=== PATIENT | female | born 1960 | race Caucasian/White ===

== ENCOUNTER 2018-05-07 09:45 | Emergency (ER) | payer BC ==
[2018-05-07 10:39] VITALS: BP 150/66
--- NOTE | 2018-05-07 11:25 | UC ---
Skin Complaint HPI - HPI Summary HPI Summary: Patient presents to urgent care reporting itchy progressive rash on her whole body for the last 4-5 days. Patient states she has taken cool showers and seemed to help with temporary. No facial swelling or difficulty swallowing. Patient with a history of sarcoid and states she is on immunosuppressants for this. Patient states this has not progressed and she has no changes from her baseline is between status. Patient denies any new products, environments, or contacts. Patient does state she was been outside working quite a bit but in the same environment she's been also some or. No be at home with any similar lesions. Patient unable to take Benadryl causing itching. Patient does take Singulair and another allergy medicine daily. Patient without fevers. No nausea vomiting. No change in appetite. No diarrhea. No dysuria. Patient is most concerned because her grandchildren are coming to visit for a week starting tomorrow. Patient's concerned she might have something contagious. Patient has not put anything topical on the wounds. Patient without anything similar. Medications medications reviewed this visit - History of Current Complaint Chief Complaint: UCSkin Time Seen by Provider: 05/07/18 10:48 Stated Complaint: SKIN CONCERN/FACIAL Hx Obtained From: Patient ?: No Onset/Duration: Gradual Onset Onset Severity: Mild Current Severity: None Pain Intensity: 0 Pain Scale Used: 0-10 Numeric Character: Pruritus Aggravating Factor(s): Humidity - Allergy/Home Medications Allergies/Adverse Reactions: Allergies Allergy/AdvReac Type Severity Reaction Status Date / Time amoxicillin Allergy Anaphylatic Verified 05/07/18 10:25 Shock codeine Allergy Hives Verified 05/07/18 10:25 diphenhydramine Allergy Anaphylatic Verified 05/07/18 10:25 [From Benadryl] Shock hydrocodone Allergy Hives Verified 05/07/18 10:25 leflunomide Allergy Diarrhea Verified 05/07/18 11:09 morphine Allergy Headache Verified 05/07/18 10:25 Sulfa (Sulfonamide Allergy Difficulty Verified 05/07/18 10:25 Antibiotics) Breathing BEES Allergy Anaphylatic Uncoded 05/07/18 10:25 Shock NUTS Allergy Difficulty Uncoded 05/07/18 10:25 Breathing Home Medications: Home Medications prednisoLONE 1% OPHTH.SUSP* [Pred Forte 1%*] 1 drop .SEE ORDER BID PRN 05/07/18 [History Confirmed 05/07/18] raNITIdine HCl [Ranitidine HCl] 150 mg PO BEDTIME 05/07/18 [History Confirmed ] tiZANidine TAB* [Zanaflex TAB*] 2 mg PO TID PRN 05/07/18 [History Confirmed 06/16] Review of Systems Constitutional: Negative Skin: Rash All Other Systems Reviewed And Are Negative: Yes PMH/Surg Hx/FS Hx/Imm Hx Previously Healthy: Yes - sarcoidosis Cardiovascular History: Hypertension - Surgical History Surgical History: Yes Surgery Procedure, Year, and Place: [place] RIGHT EAR. appy. hysterectomy. ovaries removed x2. carpal tunnel. b/l cataract. polyp removed from throat. right rotator cuff sx--2016bilateral. neck surgery- disc removed. - Family History Known Family History: Positive: Hypertension - Social History Lives: With Family Alcohol Use: None Substance Use Type: None Smoking Status (MU): Never Smoked Tobacco Physical Exam - Summary Physical Exam Summary: Vital Signs Reviewed: Yes A+Ox3, no distress Eyes: Conjunctiva Clear, YONNY. EOM intact and full ENT: Hearing grossly normal TM x 2 clear, mmoist, uvula midline, no exudate, no erythema Neck: Positive: Supple Respiratory: Positive: No respiratory distress, No accessory muscle use + CTA throughout no w/r Cardiovascular: RRR nl s1, s2 no m/r CBT <2 sec abd soft + BS nt/nd no guarding, no distension Musculoskeletal Exam: RAND x 4 without difficulty Strength Intact, ROM Intact Neurological: Positive: Alert, + sensation throughout Psychological: Positive: Normal Response To Family Skin: Positive: Pt with 2 different appearing skin lesions types. Pt with red, confuluent, flat slightly moist appearing rash c/w yeast under breasts b/l, going, and in skin fold on left flank. Pt also with small, urticaria lesions on upper chest, abdomen, forearms, posterior neck, scalp - hive likelesions on erythematous base . no vesicles Triage Information Reviewed: Yes Vital Signs: Initial Vital Signs Temp 97.5 F 05/07/18 10:32 Pulse 71 05/07/18 10:32 Resp 16 05/07/18 10:32 BP 150/66 05/07/18 10:32 Pulse Ox 99 08/09/18 10:32 Course/Dx - Course Course Of Treatment: Patient presents with rash progressive for 5 days. Patient with appearance of Ayah-type of rash under her breasts morning and skinfolds. Patient also with a separate distantly different appearing urticarial hives on torso abdomen back arms neck area patient. Pt's BP mild elevated -current diagnosis and treatment. Concern for infectious processes low. Patient however is immunocompromised. Patient very concerned because her grandchildren are coming. I contacted Dr. Murillo's office - he is able to see the patient today at 130 this [place] office. Patient very happy with this plan. We'll refrain him scribing anything pending that evaluation. Patient given the address. Patient advised to present at 124 paperwork. Patient agreement with plan. Patient advised if any changes to difficulty breathing or intraoral edema should go to emergency department or call 911 immediately Patient states understanding and agreement. - Diagnoses Provider Diagnoses: acute rash Discharge - Sign-Out/Discharge Documenting (check all that apply): Patient Departure - Discharge Plan Condition: Stable Disposition: HOME Patient Education Materials: Acute Rash (ED) Referrals: Abel Murillo MD [Medical Doctor] - (6 [facility] [address] - 1:30pm today, 05/07/2018) No Primary Care Phys,NOPCP [Primary Care Provider] - Additional Instructions: The doctor that evaluated you today thinks some of your rash (under your breast , groin) is related to yeast. The other areas appear as hives. Because of your other medical conditions, it is recommended you seek care from a nursing assistants teacher You have an appointment today at 130pm (please arrive at 1:20pm to complete paperwork) with Dr. Murillo - [address] [place] [address] [address] - he is expecting you Avoid getting over heated if you develop difficulty breathing or throat swallowing - call 911 and go the hospital - Billing Disposition and Condition Condition: STABLE Disposition: Home
== END 2018-05-07 11:15 | disposition home or self-care (01) ==
LOC: UCCORT 09:45
DX: R21 Rash and other nonspecific skin eruption (principal); Z88.0 Allergy status to penicillin; E88.2 Lipomatosis, not elsewhere classified; Z88.5 Allergy status to narcotic agent; Z88.8 Allergy status to other drugs, medicaments and biological substances; I10 Essential (primary) hypertension
CPT/HCPCS: 99212; G0463

== ENCOUNTER 2019-01-08 21:30 | Emergency (ER) | payer BC ==
[2019-01-08 21:48] VITALS: BP 145/75
--- NOTE | 2019-01-08 22:00 | UC ---
UC General HPI - HPI Summary HPI Summary: pt c/o R ear pain, sore throat, headache and joint aches x 3 days. - History of Current Complaint Chief Complaint: UCGeneralIllness Stated Complaint: EAR CONCERN,SORE THROAT Time Seen by Provider: 01/08/19 21:51 Hx Obtained From: Patient Timing: Constant Pain Intensity: 6 Associated Signs & Symptoms: Negative: Chest Pain, SOB - Allergy/Home Medications Allergies/Adverse Reactions: Allergies Allergy/AdvReac Type Severity Reaction Status Date / Time amoxicillin Allergy Anaphylatic Verified 01/08/19 21:42 Shock codeine Allergy Hives Verified 01/08/19 21:42 diphenhydramine Allergy Anaphylatic Verified 01/08/19 21:42 [From Benadryl] Shock hydrocodone Allergy Hives Verified 01/08/19 21:42 leflunomide Allergy Diarrhea Verified 01/08/19 21:42 morphine Allergy Headache Verified 01/08/19 21:42 Sulfa (Sulfonamide Allergy Difficulty Verified 01/08/19 21:42 Antibiotics) Breathing BEES Allergy Anaphylatic Uncoded 01/08/19 21:42 Shock NUTS Allergy Difficulty Uncoded 01/08/19 21:42 Breathing PMH/Surg Hx/FS Hx/Imm Hx - Additional Past Medical History Additional PMH: sarcoidosis Endocrine History: Dyslipidemia Cardiovascular History: Hypertension Respiratory History: Asthma - Surgical History Surgical History: Yes Surgery Procedure, Year, and Place: [place] RIGHT EAR. appy. hysterectomy. ovaries removed x2. carpal tunnel. b/l cataract. polyp removed from throat. right rotator cuff sx--2016bilateral. neck surgery- disc removed. - Family History Known Family History: Positive: Hypertension - Social History Lives: With Family Alcohol Use: None Substance Use Type: None Smoking Status (MU): Never Smoked Tobacco Review of Systems All Other Systems Reviewed And Are Negative: Yes ENT: Positive: Sore Throat, Ear Ache Musculoskeletal: Positive: Arthralgia Neurological: Positive: Headache Is Patient Immunocompromised?: Yes Physical Exam Triage Information Reviewed: Yes Appearance: Ill-Appearing - but non toxic Vital Signs: Initial Vital Signs Temp 97.2 F 01/08/19 21:45 Pulse 64 01/08/19 21:45 Resp 18 01/08/19 21:45 BP 145/75 01/08/19 21:45 Pulse Ox 97 01/08/19 21:45 Eyes: Positive: Conjunctiva Clear ENT: Positive: Pharyngeal erythema, TMs normal, Other - Canals clear. No auricular adenopathy or mastoid tenderness.. Negative: Nasal congestion, Nasal drainage Neck: Positive: Supple, Nontender, No Lymphadenopathy Respiratory: Positive: Lungs clear, Normal breath sounds Cardiovascular: Positive: RRR, No Murmur Abdomen Description: Positive: Nontender Bowel Sounds: Positive: Present Musculoskeletal: Positive: ROM Intact Neurological: Positive: Alert Psychological: Positive: Normal Response To Family, Age Appropriate Behavior Skin Exam: Normal, Other - Face is flushed. Course/Dx - Course Course Of Treatment: DIAGNOSTICS: RAPID STREP= positive RAPID FLU=negative pt states she has taken Zithromax with no issues and request a Diflucan to tx yeast vaginitis from antibiotics. - Diagnoses Provider Diagnosis: Strep throat Discharge - Sign-Out/Discharge Documenting (check all that apply): Patient Departure All imaging exams completed and their final reports reviewed: No Studies - Discharge Plan Condition: Stable Disposition: HOME Prescriptions: Azithromycin 500 mg PO DAILY 5 Days #5 tablet Fluconazole 150 MG TAB* [Diflucan 150 MG TAB*] 150 mg PO ONCE #1 tablet Patient Education Materials: Strep Throat (ED) Referrals: RICHARD Schmitt [Medical Doctor] - 7 Days - Billing Disposition and Condition Condition: STABLE Disposition: Home
[2019-01-08] MEDS ORDERED: Azithromycin TAB* 250 MG PO ONE (22:17)
[2019-01-08 22:26] LABS: Influenza A Molecular NEGATIVE (Negative); Influenza B Molecular NEGATIVE (Negative)
== END 2019-01-08 22:34 | disposition home or self-care (01) ==
LOC: UCCORT 21:30
DX: J02.0 Streptococcal pharyngitis (principal); H92.01 Otalgia, right ear; E78.5 Hyperlipidemia, unspecified; I10 Essential (primary) hypertension; J45.909 Unspecified asthma, uncomplicated; Z88.0 Allergy status to penicillin; Z88.2 Allergy status to sulfonamides; Z91.030 Bee allergy status; Z88.5 Allergy status to narcotic agent; Z91.018 Allergy to other foods
CPT/HCPCS: 87651; 99212; A9270-GY; G0463

== ENCOUNTER 2019-05-05 15:50 | Emergency (ER) | payer BC ==
--- OUTSIDE RECORDS SUMMARY | 2019-05-05 17:14 | XMS REPORT | Continuity of Care Document ---
:1960 Author Organization [facility] Address [address], [place] [id number] Phone Care Team Providers Name Role Phone Kaya BILL, Mayte Unavailable Unavailable Allergies, Adverse Reactions, Alerts Substance Reaction Status balsam elian Active PROPOLIS (BEE GLUE) EXTRACT Active TAPENTADOL HCL Active morphine Active erythromycin base Active DIPHENHYDRAMINE HCL Active HYDROCODONE BITARTRATE Active acetaminophen Active codeine Active Sulfa (Sulfonamide Antibiotics) Active amoxicillin Active Medications Medication Instructions Dosage Effective Status Comments Dates (start - stop) hydroxychloroquine 200 take 2 tablet by 2 tablet - Active mg tablet oral route every day Remicade 100 mg infuse 900 900 milligram - Active intravenous solution milligram by intravenous route every 5 weeks prednisolone acetate 1 % instill 1 drop by - Active eye drops,suspension ophthalmic route every day into affected eye(s) cyclobenzaprine 10 mg take 1 tablet by 10 MG - Active tablet oral route every night as needed hydrochlorothiazide 25 take 1 tablet by 25 MG - Active mg tablet oral route every day lidocaine HCl 4 % - Active topical cream ibuprofen 800 mg tablet take 1 tablet by 800 MG - Active oral route 3 times every day as needed with food ranitidine 150 mg tablet take 1 tablet - Active (150MG) by oral route prn as needed Nexium 40 mg Cap take 1 capsule 40 MG - Active (40MG) by oral route every day pravastatin 40 mg Tab take 1 tablet 40 MG - Active (40MG) by oral route every day Singulair 10 mg Tab take 1 tablet 10 MG - Active (10MG) by oral route every day in the evening Clarinex 5 mg Tab take 1 tablet 5 MG - Active (5MG) by oral route every day Problems Condition Effective Dates Clinical Status Comments (start - stop) Body mass index (BMI) - 40.0-44.9, adult Sarcoidosis, unspecified Sarcoidosis, unspecified Other superintendent marine oil terminal (current) drug therapy Other dysphagia Sarcoidosis, unspecified Sarcoidosis, unspecified Sarcoidosis, unspecified Sarcoidosis, unspecified Other longterm (current) drug therapy Sarcoidosis, unspecified Sarcoidosis, unspecified Sarcoidosis, unspecified Other longterm (current) drug therapy Disorder of urinary system Sarcoidosis, unspecified Sarcoidosis, unspecified Sarcoidosis, unspecified Sarcoidosis, unspecified Other longterm (current) drug therapy Sarcoidosis Sarcoidosis Sarcoidosis Sarcoidosis Other superintendent marine oil terminal drug therapy Sarcoidosis Sarcoidosis Other longterm drug therapy Sarcoidosis Other longterm drug therapy Fatigue Sarcoidosis Sarcoidosis Other longterm drug therapy Sarcoidosis Sarcoidosis Sarcoidosis Headache Other longterm drug therapy Fatigue Diarrhea Sarcoidosis Sarcoidosis Other longterm drug therapy Fatigue Headache Diarrhea Chest pain Sarcoidosis Other longterm drug therapy Lumbago Cough Sarcoidosis Other superintendent marine oil terminal drug therapy Sarcoidosis Other superintendent marine [employer] terminal drug therapy Pain in right ankle and joints of right foot Pain in left ankle Sarcoidosis Sarcoidosis Other superintendent marine oil terminal drug therapy Oral thrush Rash Sarcoidosis Other superintendent marine oil terminal drug therapy Encounter for screening for respiratory tuberculosis Sarcoidosis Other superintendent marine oil terminal drug therapy Back pain Cervicalgia Sarcoidosis Other superintendent marine oil terminal drug therapy Sarcoidosis Other superintendent marine oil terminal drug therapy Cervicalgia Sarcoidosis Other longterm drug therapy Cervicalgia Sarcoidosis Other longterm drug therapy Pain in rt shoulder Lumbago Other superintendent marine oil terminal drug therapy Sarcoidosis Other superintendent marine oil terminal drug therapy Pain in rt shoulder Back pain Sarcoidosis Other longterm drug therapy Sarcoidosis Other longterm drug therapy Sarcoidosis Other superintendent marine oil terminal drug therapy Sarcoidosis Other superintendent marine oil terminal drug therapy Sarcoidosis Other longterm drug therapy Pain in rt shoulder Sarcoidosis Other superintendent marine oil terminal drug therapy Sarcoidosis Other superintendent marine oil terminal drug therapy Pain in rt shoulder Sarcoidosis - Active Mapped from [facility] Chronic Conditions table on 12/06/2014 by the ICD9 to SNOMED Bulk Mapping Utility. The mapped diagnosis code was Sarcoidosis, 135, added by Thelma Langford, with responsible provider Thelma MATTHEWS. Onset date 04/08/2012; last addressed on 08/30/2014. Joint pain in ankle and - Active Mapped from [facility] Chronic foot Conditions table on 12/06/2014 by the ICD9 to SNOMED Bulk Mapping Utility. The mapped diagnosis code was Pain in joint involving ankle and foot, 719.47, added by December [facility] EBEN Langford, with responsible provider [facility] CASSIE. Onset date 04/08/2012; last addressed on 05/24/2013. Procedures Procedure Date CHEMO, IV INFUSION, 1 HR CHEMO, IV INFUSION, ADDL HR Infliximab injection Remicade Normal saline solution infus Results Test Name Date and Time Measure Units Reference Range Abnormal Flag Status Comments No information Advance Directives Directive Yes / No Effective Date File Name No information Encounters Encounter Practice Location Reason(s) Diagnoses Date Provider Providers Description For Visit Copied on Encounter Arthritis Arthritis Sarcoidosis, [facility] unspecified 2-201 MD Hu. [facility] 9 5794 PLLC, 5794 PLLC [facility], [place], [place], [id number], [id number], [place]. [place] tel:[phone] tel:[phone] Arthritis Arthritis Sarcoidosis, [facility] unspecifiedOt 0-201 PA-C December. Provider: Sven Machuca her superintendent marine oil terminal 9 5794 Robbie Schultz PLLC, 5794 PLLC (current) Osorio BILL, 90 [facility] drug [place], [place], therapyOther [place], [place], [place], dysphagia [place], [place], [id number], [place], [address]. [id number], [place]. tel:[phone] [place] tel:[phone] tel:[phone] logist: [id number] Becky Wu, [address] [facility], [place], [address]. tel:[phone] ist: Brenda Cannon MD, [address], [place], [address]. tel:[phone] ing Provider: Rita Guillory MD, [address] [facility] [address], [place], [place], [id number]. tel:[phone] Arthritis Arthritis Sarcoidosis, [facility] unspecified MD Hu. [facility] 9 5794 PLLC, 5794 PLLC [facility], [place], [place], [place], [id number], [id number], [place]. [place] tel:[phone] tel:[phone] Arthritis Arthritis Sarcoidosis, [facility] unspecified MD Hu. [facility] 9 5794 PLLC, 5794 PLLC [facility], [place], [place], [place], [id number], [id number], [place]. [place] tel:[phone] tel:[phone] Arthritis Arthritis Sarcoidosis, [facility] unspecified MD Hu. [facility] 9 5794 PLLC, 5794 PLLC [facility], [place], [place], [place], [place], [place], [id number], [id number], [place]. [place] tel:[phone] tel:[phone] Arthritis Arthritis Sarcoidosis, [facility] unspecifiedOt OSORIO December. Provider: Sven Machuca her superintendent [employer] 9 5794 Robbie Manta PLLC, 5794 PLLC (current) Osorio BILL, 90 [facility] drug therapy [place], [facility], [place], [place], [place], [place], [place], [id number], [place], [address]. [id number], [place]. tel:[phone] [place] tel:[phone] tel:[phone] logist: [id number] Becky Wu, [address] [facility], [place], [address]. tel:[phone] ist: Brenda Cannon MD, [address], [place], [address]. tel:[phone] ing Provider: Rita Guillory MD, [address] [facility] [address], [place], [place], [id number]. tel:[phone] Arthritis Arthritis Sarcoidosis, [facility] Referring [facility] unspecified MD Hu. Provider: Sven Machuca 9 5794 Richy PLLC, 5794 PLLC [facility], [facility], [facility], [place], [place], [place], [place], [id number], [place], [address]. [id number], [place]. tel:[phone] [place] tel:[phone] tel:[phone] Arthritis Arthritis Sarcoidosis, Lizeth BILL Referring [facility] unspecified Elia. Provider: Sven Machuca 9 5794 Rich[facility] PLLC, 5794 PLLC [facility], [facility], [facility], [place], [place], [place], [place], [id number], [place], [address]. [id number], [place]. tel:[phone] [place] tel:[phone] tel:[phone] Arthritis Arthritis Sarcoidosis, [facility] unspecifiedOt PA-C December. Provider: Sven Machuca her superintendent marine [employer] 8 5794 Robbie Manta PLLC, 5794 PLLC (current) Osorio BILL, 90 [facility], [facility], therapyDisord [place], [place], [place], er of urinary [place], [place], [place], system [id number], [place], [address]. [id number], [place]. tel:[phone] [place] tel:[phone] tel:[phone] logist: [id number] Becky Wu, [address] [facility], [place], [address]. tel:[phone] ist: Brenda Cannon MD, [address] [place], [address]. tel:[phone] ing Provider: Rita Guillory MD, [address], [id number]. tel:[phone] Arthritis Arthritis Sarcoidosis, [facility] unspecified MD Hu. Provider: Sven Machuca 8 5794 Richy PLLC, 5794 PLLC [facility], [facility], [place], [place], [place], [place], [id number], [place], [address]. [id number], [place]. tel:[phone] [place] tel:[phone] tel:[phone] Arthritis Arthritis Sarcoidosis, [facility] unspecified MD Hu. Provider: Sven Machuca 8 5794 Richy PLLC, [address] [facility] [facility], [facility], [place], [place], [place], [place], [id number], [place], [address]. [id number], [place]. tel:[phone] [place] tel:[phone] tel:[phone] Arthritis Arthritis Sarcoidosis, [facility] unspecified MD Hu. Provider: Sven Machuca 8 5794 Roman PLLC, 5794 PLLC Osorio Carrillo MD, [facility], [address] [place] [address], [place], [place], [place], [id number], [place], [id number], [place], [address]. [place] tel:[phone] tel:[phone] tel:[phone] Arthritis Arthritis Sarcoidosis, May- [facility] unspecifiedOt PA-C December. Provider: Sven Machuca [facility] superintendent [employer] terminal 8 5794 Robbie Manta PLLC, 5794 PLLC (current) Osorio BILL, 90 [facility] drug therapy [place], [facility], [place], [place], [id number], [place], [address]. [id number], [place]. tel:[phone] [place] tel:[phone] tel:[phone] logist: [id number] Becky Wu, [address] [facility], [place], [address]. tel:[phone] ist: Brenda Cannon MD, [address] [place], [address]. tel:[phone] ing Provider: Rita Guillory MD, [address] [address], [place], [place], [id number]. tel:[phone] Arthritis Arthritis Sarcoidosis Lizeth BILL [facility]. Provider: [facility] 8 5794 Richy PLL, 5794 [facility], [facility], - [place], [place], [place], [place], [id number], [place], [address]. [id number], [place]. tel:[phone] [place] tel:[phone] tel:[phone] Arthritis Arthritis Sarcoidosis [facility] MD Hu. [facility] 8 5794 PLLC, 5794 [facility], [place], [place], [address], [id number], [place]. [place] tel:[phone] tel:[phone] Arthritis Arthritis Sarcoidosis [facility] 3 MD Hu. [facility] 8 5794 PLLC, 5794 [facility], [place], [place], [address], [id number], [place]. [place] tel:[phone] tel:[phone] Arthritis Arthritis SarcoidosisOt [facility] superintendent marine oil terminal 1- OSORIO December. Provider: Sven Machuca drug therapy 8 5794 Robbie Antoine PLLC, 5794 PLLPrimitivo Ac MD, 90 [facility], [facility], [place], [place], [place], [place], [place], [place], [id number], [place], [address]. [id number], [place]. tel:[phone] [place] tel:[phone] tel:[phone] logist: [id number] Becky Wu, [address] [facility], [place], [address]. tel:[phone] ist: Brenda Cannon MD, [address] [place], [address]. tel:[phone] ing Provider: Rita Guillory MD, [address] [facility] [address], [place], [place], [id number]. tel:[phone] Arthritis Arthritis Sarcoidosis May-0 [facility] 9-201 MD Hu. [facility] 8 5794 PLLC, 5794 PLLC [facility], [place], [place], [place], [place], [address], [id number], [place]. [place] tel:[phone] tel:[phone] Arthritis Arthritis Sarcoidosis Apr-0 [facility] 4-201 MD Hu. [facility] 8 5794 PLLC, 5794 PLLC [facility], [place], [place], [place], [place], [address], [id number], [place]. [place] tel:[phone] tel:[phone] Arthritis Arthritis Other long Apr-0 [facility] term drug 2-201 MD Hu. Associates Associates therapy 8 5794 PLLC, 5794 PLLC [facility], [place], [place], [place], [place], [place], [id number], [id number], [place]. [place] tel:[phone] tel:[phone] Arthritis Arthritis SarcoidosisOt Nov- [facility] her longterm 7-201 MD Hu. Provider: Sven Machuca drug 8 5794 Robbie Manta PLLC, 5794 PLLC therapyFaleandra Ac MD, 90 [facility], [facility], [place], [place], [place], [place], [place], [id number], [place], [address]. [id number], [place]. tel:[phone] [place] tel:[phone] tel:[phone] logist: [id number] Becky Wu, [address] [facility], [place], [address]. tel:[phone] ist: Brenda Cannon MD, [address] [place], [address]. tel:[phone] ing Provider: Rita Guillory MD, [address] [facility] [address], [place], [place], [id number]. tel:[phone] Arthritis Arthritis Sarcoidosis Jj-3 [facility] 0-201 MD Hu. Sven Machuca 8 5794 PLLC, 5794 PLLC [facility], [place], [place], [place], [place], [id number], [id number], [place]. [place] tel:[phone] tel:[phone] Arthritis Arthritis SarcoidosisOt Aug- [facility] her longterm 2-201 PA-C December. Provider: Sven Machuca drug therapy 7 5794 Robbie Manta PLLC, 5794 PLLC Osorio BILL, [address] [place] [address], [facility], [place], [place], [place], [place], [place], [id number], [place], [address]. [id number], [place]. tel:[phone] [place] tel:[phone] tel:[phone] logist: [id number] Becky Wu, [address] [facility], [place], [address]. tel:[phone] ist: Brenda Cannon MD, [address], [place], [address]. tel:[phone] ist: Andriy Erazo MD, [address] [place], [address]. tel:[phone] Arthritis Arthritis Sarcoidosis [facility] 2-201 MD Hu. [facility] 7 5794 PLLC, 5794 PLLC [facility], [place], [place], [place], [place], [id number], [id number], [place]. [place] tel:[phone] tel:[phone] Arthritis Arthritis Sarcoidosis [facility] 8-201 MD Hu. [facility] 7 5794 PLLC, 5794 PLLC [facility], [place], [place], [place], [place], [place], [address], [id number], [place]. [place] tel:[phone] tel:[phone] Arthritis Arthritis SarcoidosisHe [facility] adacheOther 9-201 MD Hu. Provider: Associates Associates [employer] 7 5794 Robbie Antoine PLLC, 5794 PLLC hayley Ac MD, 90 [facility], [facility], [facility], [place], [place], [place], [place], [address], [place], [address]. [id number], [place]. tel:[phone] [place] tel:[phone] tel:[phone] logist: [id number] Becky Wu, [address] [facility], [place], [address]. tel:[phone] ist: Brenda Cannon MD, [address], [place], [address]. tel:[phone] ist: Andriy Erazo MD, 66[address] [facility], [place], [address]. tel:[phone] Arthritis Arthritis Sarcoidosis Sep-1 [facility] 3- MD Hu. Associates Associates 7 5794 PLLC, 5794 PLLC [facility], [place], [place], [place], [place], [id number], [id number], [place]. [place] tel:[phone] tel:[phone] Arthritis Arthritis SarcoidosisOt Sep-0 [facility] superintendent marine oil terminal 5- MD Hu. Provider: Associates Associates drug 7 5794 Robbie Manta PLLC, 5794 PLLC therapyFaleandra Ac MD, [address] [place] [address], [facility], rheaChest [place], [place], [place], pain [place], [place], [place], [address], [place], [address]. [id number], [place]. tel:[phone] [place] tel:[phone] tel:[phone] logist: [id number] Becky Wu, [address] [facility], [place], [address]. tel:[phone] ist: Brenda Cannon MD, 3400 [facility], [place], [address]. tel:[phone] ist: Andriy Erazo MD, 6620 [facility], [place], [address]. tel:[phone] Arthritis Arthritis SarcoidosisOt Aug-0 [facility] superintendent marine oil terminal 3[address] Lisa Pablo Provider: Associates Associates drug 7 5794 Rob[facility] Manta PLLC, 5794 PLLC Hari Ac MD, [address] [place] [address], [facility], (BMI) [place], [place], 40.0-44.9, [place], [place], [place], adultLumbagoC [id number], [place], [address]. [id number], ough [place]. tel:[phone] [place] tel:[phone] tel:[phone] logist: [id number] Becky Wu, [address] [facility], [place], [address]. tel:[phone] ist: Brenda Cannon MD, [address] [place], [address]. tel:[phone] ist: Andriy Erazo MD, [address] [place] [address], [address]. tel:[phone] Arthritis Arthritis SarcoidosisOt [facility] her superintendent marine oil terminal PA-C Provider: Associates Associates drug therapy 7 [place]. Robbie Manta PLLC, 5794 PLLC Sisi BILL, [address] [place], [place] [address]ial [place], [place], [place], [place], [place], [place], [place], [place], [address]. [id number], [id number], tel:[phone] [place]. [address]Cewmwjx tel:[phone] tel:[phone] logist: [id number] Becky Wu, 1[address] [facility], [place], [address]. tel:[phone] ist: Brenda Cannon MD, [address] [place], [address]. tel:[phone] ist: Andriy Erazo MD, [address] [place] [address], [address]. tel:[phone] Arthritis Arthritis SarcoidosisOt [facility] her longterm PA-C December. Provider: Associates Associates drug 7 5794 Rob[facility] Manta PLLC, 5794 PLLC Gabe Ac MD, [address] [place] [address] in right [place], [facility], ankle and [place], [place], [place], joints of [place], [place], [place] [id number], [place], [address]. [id number], footPain in [place]. tel:[phone] [place] left ankle tel:[phone] tel:[phone] logist: [id number] Becky Wahlon, [address] [place], [address]. tel:[phone] ist: Brenda Cannon MD, [address], [place], [address]. tel:[phone] ist: Andriy Erazo MD, [address] [place] [address], [place], [address]. tel:[phone] Arthritis Arthritis Sarcoidosis May-0 [facility], [facility] 3-201 [address]. 5794 Associates Associates 7 [place] [facility], 5794 PLLC [place], [facility], [place], [place], [place], [id number], [place], [place]. [id number], tel:[phone] tel:[phone] Arthritis Arthritis SarcoidosisOt Nov- [facility] her longterm 9 OSORIO Arias. Provider: Associates Associates drug 7 5794 Rob[facility] Manta PLLC, 5794 PLLC therapyPickett Osorio BILL, [address] [place] [address], [facility], [place], [place], [place], [place], [place], [address], [place], [address]. [id number], [place]. tel:[phone] [place] tel:[phone] tel:[phone] logist: [id number] Beckybrandie Wu, [address] [place] [address], [address]. tel:[phone] ist: Brenda Cannon MD, [address], [place], [address]. tel:[phone] ist: Andriy Erazo MD, [address] [place] [address], [place], [address]. tel:[phone] Arthritis Arthritis SarcoidosisOt Feb-2 [facility] her longterm 2- georgia Lee. Provider: Associates [facility] drug therapy 7 5794 Rob[facility] Manta PLLC, 5794 PLLC Osorio BILL, [address] [place] [address], [place], [place], [place], [place], [place], [place], [id number], [place], [address]. [id number], [place]. tel:[phone] [place] tel:[phone] tel:[phone] logist: [id number] Becky Wu, [address] [place] [address], [address]. tel:[phone] ist: Brenda Cannon MD, [address], [place], [address]. tel:[phone] ist: Andriy Erazo MD, [address] [place] [address], [address]. tel:[phone] Arthritis Arthritis Encounter for Hammad COMPUTER OPERATIONS SPECIALIST-C [facility] screening for [address]. 5794 [facility] respiratory 7 [facility] PLLC, 5794 PLLC [place], [place], [place], [id number], [place], [place]. [id number], tel:+ [phone] tel:[phone] Arthritis Arthritis SarcoidosisOt Hammad COMPUTER OPERATIONS SPECIALIST-C Consulting [facility] her longterm 8-201 [address]. 5794 Provider: Sven Machuca drug 7 [facility] Robbie Manta PLLC, 5794 PLLC [facility]Conne[facility] MD Kristopher, [address] [place] [address] painCervicalg [facility], ks [place], [place], [place], [id number], [place], [address]. [id number], tel:[phone] tel:[phone] tel:[phone] logist: [id number] Becky Wu, [address] [place] [address], [address]. tel:[phone] ist: Brenda Cannon MD, [address], [place], [address]. tel:[phone] ist: Andriy Erazo MD, [address] [place], [address]. tel:[phone] Arthritis Arthritis SarcoidosisOt Aug- [facility] her longterm 5-201 MD Hu. Provider: Sven Machuca drug therapy 6 5794 Rob[facility] Schultz PLLC, 5794 PLLC Osorio BILL, 90 [facility], [facility], [place], [place], [place], [place], [place], [id number], [place], [address]. [id number], [place]. tel:[phone] [place] tel:[phone] tel:[phone] logist: [id number] Becky Wu, [address] [place], [address]. tel:[phone] ist: Brenda Cannon MD, 3400 [facility], [place], [address]. tel:[phone] ist: Andriy Erazo MD, [address] [place], [address]. tel:[phone] Arthritis Arthritis SarcoidosisOt Nov-0 [facility] her superintendent marine oil terminal 7- PA-C December. [facility] drug 6 5794 PLLC, 5794 PLLC therapyCerBig Bend [facility], [place], [place], [place], [place], [address], [id number], [place]. [place] tel:[phone] tel:[phone] Arthritis Arthritis SarcoidosisOt Sep-2 [facility] her longterm 6- PA-C December. [facility] 6 5794 PLLC, 5794 [facility]C [facility], [place], [place], [place], [place], [id number], [id number], [place]. [place] tel:[phone] tel:[phone] Arthritis Arthritis SarcoidosisOt Apr-0 [facility] her superintendent marine [employer] 1-201 PA-C December. [facility] 6 5794 PLLC, 5794 [facility]C [facility] in [place], [place], [place], [id number], [id number], [place]. [place] tel:[phone] tel:[phone] Arthritis Arthritis Other long Mar-0 Hammad COMPUTER OPERATIONS SPECIALIST-C [facility] term drug 6- Gale. 5794 [facility] therapy 6 [facility], 5794 PLLC [place], [facility] [place], [place], [place], [place], [id number], [place], [place]. [id number], tel:[phone] tel:[phone] Arthritis Arthritis SarcoidosisOt Mar-0 Hammad COMPUTER OPERATIONS SPECIALIST-C Consulting [facility] her longterm [place]. 5794 Provider: Sven Machuca drug 6 [facility] Robbie Schultz PLLC, 5794 PLLC Gabe Summers MD, [address] [place] [address] in rt [place], [facility], [place], [place], [place], pain [id number], [place], [address]. [id number], tel:[phone] tel:[phone] tel:[phone] logist: [id number] Becky Wu, [address] [place], [address]. tel:[phone] ist: Brenda Cannon MD, [address] [facility], [place], [address]. tel:[phone] ist: Andriy Erazo MD, [address] [facility], [place], [address]. tel:[phone] Arthritis Arthritis SarcoidosisOt Augustus-0 Rybinski [facility] her longterm 3 OSORIO Arias. Provider: Sven Machuca drug therapy 6 5794 Robbie Schultz PLLC, 5794 PLLC Osorio BILL, [address] [place] [address], [facility], [place], [place], [place], [place], [place], [id number], [place], [address]. [id number], [place]. tel:[phone] tel:[phone] tel:[phone] logist: [id number] Becky Wu, [address] [place] [address], [address]. tel:[phone] ist: Brenda Cannon MD, [address] [facility], [place], [address]. tel:[phone] ist: Andriy Erazo MD, [address] [place] [address], [address]. tel:[phone] Arthritis Arthritis SarcoidosisOt Apr- [facility] Consulting [facility] longterm 5-201 RODRICK-Primitivo Arias. Provider: Sven [facility] drug therapy 6 5794 Robbie Schultz PLLPrimitivo, 5794 PLLPrimitivo Ac MD, [address] [place] [address], [facility], [place], [place], [place], [place], [place], [id number], [place], [address]. [id number], [place]. tel:[phone] tel:[phone] tel:[phone] logist: [id number] Becky Wu, [address] [place] [address], [address]. tel:[phone] ing Provider: Charlie Naylor MD, [address] [place] [address] Dept Of Pulmonary Medicine, [place], [address].Specia list: Andriy Erazo MD, [address] [place] [address], [address]. 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 Provider: Sven Machuca drug therapy 6 5794 Robbie Schultz PLLPrimitivo, 5794 PLLPrimitivo Ac MD, [address] [place] [address], [facility], [place], [place], [place], [place], [id number], [place], [address]. [id number], [place]. tel:[phone] tel:[phone] tel:[phone] logist: [id number] Becky Wu, [address] [place], [address]. tel:[phone] ing Provider: Charlie Naylor MD, [address] [place] [address] Dept Of Pulmonary Medicine, [place], [address].Consul sacha Provider: Stella Elizabeth, [address], [place], [address]. Arthritis Arthritis SarcoidosisOt [facility] her superintendent marine [employer] terminal 7 OSORIO Arias. [facility] therapy 6 5794 PLLC, 5794 PLLC [facility], [place], [place], [place], [place], [place], [id number], [id number], [place]. [place] tel:[phone] tel:[phone] Arthritis Arthritis SarcoidosisOt [facility] her superintendent marine oil terminal 3 georgia Lee. Provider: Sven Machuca drug therapy 6 5794 Robbie Schultz PLLC, 5794 PLLC Osorio BILL, [address] [facility], [facility], [place], [place], [place], [place], [place], [id number], [place], [address]. [id number], [place]. tel:[phone] tel:[phone] tel:[phone] logist: [id number] Becky Wu, [address] [place], [address]. tel:[phone] [facility] Provider: Charlie Naylor MD, [address] [place] [address] Dept Of Pulmonary Medicine, [place], [address].Consul sacha Provider: Stella Elizabeth, [address], [place], [address]. Arthritis Arthritis Pain in rt [facility] shoulder 8 OSORIO Arias. [facility] 6 5794 PLLC, 5794 PLLC [facility], [place], [place], [place], [place], [place], [id number], [id number], [place]. [place] tel:[phone] tel:[phone] Arthritis Arthritis SarcoidosisOt Dec-0 Rybini [facility] longterm 8 OSORIO Arias. Provider: Sven Machuca drug therapy 5 5794 Robbie Manta PLLC, 5794 PLLC Osorio BILL, [address] [place] [address], [facility], [place], [place], [place], [place], [id number], [place], [address]. [id number], [place]. tel:[phone] [place] tel:[phone] tel:[phone] logist: [id number] Becky Wu, [address] [place] [address], [address]. tel:[phone] ing Provider: Charlie Naylor MD, [address] [place], [place] [address]t Of Pulmonary Medicine, [place], [address].Consul ting Provider: Stella Elizabeth, [address] [place] [address], [address]. Arthritis Arthritis SarcoidosisOt Nov-0 [facility] 3 OSORIO Arias. Provider: Sven Machuca drug 5 5794 Robbie Manta PLLC, 5794 PLLC Gabe Ac MD, [address] [place] [address], [facility], [facility] [place], [place], [place], [place], [id number], [place], [address]. [id number], [place]. tel:[phone] tel:[phone] tel:[phone] logist: [id number] Becky Wu, [address] [place] [address], [address]. tel:[phone] ing Provider: Charlie Naylor MD, [address] [place], [place] [address]t Of Pulmonary Medicine, [place], [address].Consul ting Provider: Stella Elizabeth, [address] [place] [address], [address]. Arthritis Arthritis Aug-2 Rybinski [facility] 4201 OSORIO Arias. Provider: Sven Machuca 5 5794 Robbie HUGO, 5794 BETHEL Ac MD, [address] [place] [address], [facility], [place], [place], [place], [place], [id number], [place], [address]. [id number], [place]. tel:[phone] [place] tel:[phone] tel:[phone] logist: [id number] Becky Wu, [address] [place] [address], [address]. tel:[phone] ing Provider: Charlie Naylor MD, [address] [facility] Dept Of Pulmonary Medicine, [place], [address].Flavia goncalves Provider: Stella Elizabeth, [address] [place], [address]. Arthritis Arthritis [facility] PA-C December. Provider: Sven Machuca 4 5794 Robbie HUGO, 5794 BETHEL Ac MD, [address] [place] [address], [facility], [place], [place], [place], [place], [id number], [place], [address]. [id number], [place]. tel:[phone] [place] tel:[phone] tel:[phone] logist: [id number] Becky Jazmin, [address] [place] [address], [address]. tel:[phone] ing Provider: Herb Marion MD, [facility] [address], [place], [address]. tel:[phone] Arthritis Arthritis [facility] PA-C December. Provider: Sven Machuca 3 5794 Robbie HUGO, 5794 BETHEL Ac MD, [address] [place] [address], [facility], [place], [place], [place], [place], [id number], [place], [address]. [id number], [place]. tel:[phone] [place] tel:[phone] tel:[phone] logist: [id number] Becky Wahlon, [address] [place] [address], [address]. tel:[phone] Arthritis Arthritis [facility] PA-C December. Provider: [facility] 3 5794 Robbie Andreaa PLLC, 5794 PLLC Osorio BILL, [address] [place] [address], [facility], [place], [place], [place], [place], [id number], [place], [address]. [id number], [place]. tel:[phone] [place] tel:[phone] tel:[phone] logist: [id number] Becky Wu, [address] [place] [address], [address]. tel:[phone] [facility] PA-C [facility] 3 Esha De Luna PLLC, 5794 PLLC 5794 [facility], [place], [place], [place], [place], [place], [id number], [id number], [place]. tel:[phone] tel:[phone] Arthritis Arthritis [facility] PA-C December. Provider: [facility] 2 5794 Robbie Andreaa PLLC, 5794 PLLC Osorio BILL, [address] [place] [address], [facility], [place], [place], [place], [place], [id number], [place], [address]. [id number], [place]. tel:[phone] [place] tel:[phone] tel:[phone] logist: [id number] Becky Wu, [address] [place] [address], [address]. tel:[phone]: Ethel Calle PA, [address], [place], [address]. tel:[phone] Arthritis Arthritis [facility] 1-201 MD Hu. [facility] 2 5794 [facility], 5794 [facility], [facility], [place], [place], [id number], [id number], [place]. [place] tel:[phone] tel:[phone] Family History Family Member Diagnosis Age At Onset Mother Arthritis Mother Hypertension Mother Cancer Father Diabetes mellitus Father Hypertension Immunizations Vaccine Date Status Comments Influenza, injectable, administered Note: approx ; Source: Other quadrivalent, split virus, 18 Provider years or older Afluria Quad Pneumococcal polysaccharide administered Note: approx ; Source: Other PPV23 Provider Influenza, injectable, administered Note: approx ; Source: Other trivalent, split virus, 4 years Provider and older, Fluvirin Influenza, split virus, administered Note: approx ; Source: Other injectable, 3 years and older Provider Fluvirin 1379-0760 Influenza virus vaccine, administered Source: Other Provider Injection Influenza virus vaccine, administered Source: Other Provider Injection Never had Zoster administered Source: New Immunization Record pneumo (2 yrs or older) (PPV23) administered Source: Other Provider Influenza virus vaccine, administered Source: Other Provider Injection Payers Payer name Insurance type Covered democrat ID Authorization(s) BCBS No Referral Required [id number] Social History Type Description Quantity Date Captured Comments Alcohol Use Details Unknown Caffeine Use Details Unknown Tobacco Use Status Unknown Smoking Status Unknown Sex Female Vital Signs Date / Height Weight BMI Pulse Blood Temperature Respiratory Body Head BMI Pulse Inhaled Time: Rate Pressure Rate Surface Circumference percentile Ox Ox Area 64.00 246.00 42.2 82 136/84 97.30 F 18 /min in lbs 3 /min mm[Hg] 9:13 kg/m AM eter (2) 106/68 -2018 mm[Hg] 11:14 AM Chief Complaint And Reason For Visit No information Reason For Referral Reason For Referral No information Plan Of Treatment Date Type Action Status Goal Lifestyle education regarding diet completed Referral Ordered: ordered SACRUM AND COCCXY X-RAY, 2 VIEWS Referral Ordered: ordered *SACROILIAC JOINTS X-RAY, MORE THAN 3 VIEWS Referral Ordered: ordered *LUMBOSACRAL SPINE X-RAY, 4 VIEWS Referral Referred To: ordered Andriy Erazo [address], [phone] Ordered: Referrals: Orthopedic Surgery. Andriy Erazo. Location: [facility] Evaluate and treat Referral Ordered: ordered *SHOULDER X-RAY, COMPLETE, 2 VIEW Right Referral Ordered: ordered *CHEST X-RAY, 2 VIEWS, FRONTAL, LATERAL Referral Ordered: ordered *DXA BONE DENSITY, AXIAL Appointment Ricardo Christian BOOKED Appointment Ricardo Christian BOOKED History Of Present Illness Encounter Date Complaint History Of Present Illness No information Functional Status Date Functional Assessment No information Medications Administered Medication Instructions Dosage Effective Dates (start - stop) Status Comments No information Instructions Date Instruction Additional Information Call if symptoms persist Risks/benefits of medications reviewed Reviewed importance of compliance/adherence to medications prescribed Discussed importance of holding DMARDs/ biologics if patient develops an infection and to notify the treating physician Risks/benefits of medications reviewed Discussed importance of holding DMARDs/ biologics if patient develops an infection and to notify the treating physician Reviewed importance of compliance/adherence to medications prescribed Reviewed importance of compliance/adherence to medications prescribed Risks/benefits of medications reviewed f/u with pcp Discussed importance of holding DMARDs/ biologics if patient develops an infection and to notify the treating physician Discussed importance of holding DMARDs/ biologics if patient develops an infection and to notify the treating physician Reviewed importance of compliance/adherence to medications prescribed Risks/benefits of medications reviewed update eye exam yearly Risks/benefits of medications reviewed Reviewed importance of compliance/adherence to medications prescribed Discussed importance of holding DMARDs/ biologics if patient develops an infection and to notify the treating physician Pt. not exposed to someone in [place] nor traveled out of the country; no concern for TB screening. Reviewed importance of compliance/adherence to medications prescribed Risks/benefits of medications reviewed Discussed importance of holding DMARDs/ biologics if patient develops an infection and to notify the treating physician Discussed importance of holding DMARDs/ biologics if patient develops an infection and to notify the treating physician Labs ordered to check disease activity. Labs ordered to check blood counts, liver and kidney functions to monitor safety of medication. Reviewed importance of compliance/adherence to medications prescribed Lifestyle education regarding diet Related to Body mass index ( BMI) 40.0-44.9, adult Risks/benefits of medications reviewed hold medication and call if any side effect develops Labs ordered to check blood counts, liver and kidney functions to monitor safety of medication. Labs ordered to check disease activity. Discussed / Reviewed Labs continue same medication plan call if symptoms worsen Discussed importance of holding DMARDs/ biologics if patient develops an infection and to notify the treating physician Risks/benefits of medications reviewed Reviewed importance of compliance/adherence to medications prescribed Reviewed importance of compliance/adherence to medications prescribed Diet: avoid alcohol Weight reduction urged. Discussed importance of holding DMARDs/ biologics if patient develops an infection and to notify the treating physician Risks/benefits of medications reviewed Labs ordered to check blood counts, liver and kidney functions to monitor safety of medication. Avoid live vaccines Labs ordered to check disease activity. Discussed / Reviewed Labs maintain adequate water intake every day Patient plan printed and given along with recommendations call if symptoms worsen Feb-22-2017 Avoid live vaccines continue same medication plan Labs ordered to check disease activity. Discussed importance of holding DMARDs/ biologics if patient develops an infection and to notify the treating physician Labs ordered to check blood counts, liver and kidney functions to monitor safety of medication. call if symptoms worsen Reviewed importance of compliance/adherence to medications prescribed Avoid live vaccines Stretching Discussed importance of holding DMARDs/ biologics if patient develops an infection and to notify the treating physician Reviewed importance of compliance/adherence to medications prescribed Risks/benefits of medications reviewed Reviewed importance of compliance/adherence to medications prescribed Risks/benefits of medications reviewed f/u with pain management Risks/benefits of medications reviewed Reviewed importance of compliance/adherence to medications prescribed Risks/benefits of medications reviewed Risks/benefits of medications reviewed Discussed / Reviewed Labs Discussed importance of holding DMARDs/ biologics if patient develops an infection and to notify the treating physician Call if symptoms persist discussed/reviewed X-Rays Exercise more Avoid live vaccines Reviewed importance of compliance/adherence to medications prescribed Stretching Avoid sun and use high SPF sunblock Discussed importance of holding DMARDs/ biologics if patient develops an infection and to notify the treating physician Diet: avoid alcohol Risks/benefits of medications reviewed Weight reduction urged. Avoid live vaccines Reviewed importance of compliance/adherence to medications prescribed Avoid sun and use high SPF sunblock Patient plan printed and given along with recommendations Labs ordered to check disease activity. Stretching Discussed / Reviewed Labs Discussed importance of holding DMARDs/ biologics if patient develops an infection and to notify the treating physician Labs ordered to check blood counts, liver and kidney functions to monitor safety of medication. call if symptoms worsen maintain adequate water intake every day Reviewed importance of compliance/adherence to medications prescribed Labs ordered to check disease activity. Risks/benefits of medications reviewed Stretching Weight reduction urged. Avoid live vaccines Discussed importance of holding DMARDs/ biologics if patient develops an infection and to notify the treating physician Avoid sun and use high SPF sunblock Patient plan printed and given along with recommendations Discussed / Reviewed Labs call if symptoms worsen maintain adequate water intake every day Labs ordered to check blood counts, liver and kidney functions to monitor safety of medication. Diet: avoid alcohol Reviewed importance of compliance/adherence to medications prescribed Risks/benefits of medications reviewed Stretching Weight reduction urged. Avoid live vaccines Discussed importance of holding DMARDs/ biologics if patient develops an infection and to notify the treating physician Avoid sun and use high SPF sunblock Labs ordered to check disease activity. call if symptoms worsen maintain adequate water intake every day Labs ordered to check blood counts, liver and kidney functions to monitor safety of medication. Patient plan printed and given along with recommendations Discussed / Reviewed Labs maintain adequate water intake every day Discussed importance of holding DMARDs/ biologics if patient develops an infection and to notify the treating physician Weight reduction urged. Reviewed importance of compliance/adherence to medications prescribed Risks/benefits of medications reviewed Avoid sun and use high SPF sunblock Avoid live vaccines Stretching call if symptoms worsen Patient plan printed and given along with recommendations Labs ordered to check blood counts, liver and kidney functions to monitor safety of medication. Labs ordered to check disease activity. Discussed / Reviewed Labs Daily range of motion exercises for symptomatic joints recommended. call if symptoms worsen Avoid live vaccines Daily range of motion exercises for symptomatic joints recommended. Labs ordered to check disease activity. Labs ordered to check blood counts, liver and kidney functions to monitor safety of medication. Discussed importance of holding DMARDs/ biologics if patient develops an infection and to notify the treating physician Discussed importance of holding DMARDs/ biologics if patient develops an infection and to notify the treating physician Daily range of motion exercises for symptomatic joints recommended. Discussed / Reviewed Labs Labs ordered to check disease activity. Patient plan printed and given along with recommendations Yoga Stretching Labs ordered to check blood counts, liver and kidney functions to monitor safety of medication. call if symptoms worsen increase hydration Reviewed importance of compliance/adherence to medications prescribed Diet: avoid alcohol Weight reduction urged. Avoid live vaccines Avoid sun and use high SPF sunblock Risks/benefits of medications reviewed Avoid live vaccines Reviewed importance of compliance/adherence to medications prescribed Diet: avoid alcohol Labs ordered to check blood counts, liver and kidney functions to monitor safety of medication. Weight reduction urged. Risks/benefits of medications reviewed Discussed importance of holding DMARDs/ biologics if patient develops an infection and to notify the treating physician Avoid sun and use high SPF sunblock Labs ordered to check disease activity. Daily range of motion exercises for symptomatic joints recommended. increase hydration call if symptoms worsen Discussed / Reviewed Labs Patient plan printed and given along with recommendations Reviewed importance of compliance/adherence to medications prescribed Risks/benefits of medications reviewed Diet: avoid alcohol Weight reduction urged. Avoid live vaccines Patient plan printed and given along with recommendations Avoid sun and use high SPF sunblock Discussed importance of holding DMARDs/ biologics if patient develops an infection and to notify the treating physician call if symptoms worsen
[2019-05-05 17:24] VITALS: BP 153/72
--- NOTE | 2019-05-05 17:42 | UC ---
Respiratory Complaint HPI - HPI Summary HPI Summary: Pt presents with worsening nasal congestion, cough sinus pressure and pain X 5 days. Pt has sarcoidosis. - History of Current Complaint Chief Complaint: UCRespiratory Stated Complaint: SINUS,COUGH Time Seen by Provider: 05/05/19 17:33 Hx Obtained From: Patient ?: No Onset/Duration: Gradual Onset, Lasting Days, Worse Since - osnet Timing: Constant Severity Initially: Mild Severity Currently: Moderate Pain Intensity: 0 Character: Cough: Nonproductive Aggravating Factors: Allergens, Exertion, Deep Breaths, Recumbent Position Alleviating Factors: Nothing Associated Signs And Symptoms: Positive: Chills, URI, Nasal Congestion, Sinus Discomfort Related History: Seasonal Allergies - Risk Factors Pulmonary Embolism Risk Factors: Negative Cardiac Risk Factors: Negative Pseudomonas Risk Factors: Chronic Lung Disease Tuberculosis Risk Factors: Negative - Allergies/Home Medications Allergies/Adverse Reactions: Allergies Allergy/AdvReac Type Severity Reaction Status Date / Time amoxicillin Allergy Anaphylatic Verified 05/05/19 17:15 Shock codeine Allergy Hives Verified 05/05/19 17:15 diphenhydramine Allergy Anaphylatic Verified 05/05/19 17:15 [From Benadryl] Shock hydrocodone Allergy Hives Verified 05/05/19 17:15 leflunomide Allergy Diarrhea Verified 05/05/19 17:15 morphine Allergy Headache Verified 05/05/19 17:15 Sulfa (Sulfonamide Allergy Difficulty Verified 05/05/19 17:15 Antibiotics) Breathing BEES Allergy Anaphylatic Uncoded 05/05/19 17:15 Shock NUTS Allergy Difficulty Uncoded 05/05/19 17:15 Breathing Home Medications: Home Medications Ibuprofen 800 mg PO Q6H 05/05/19 [History Confirmed 05/05/19] PMH/Surg Hx/FS Hx/Imm Hx Previously Healthy: Yes Respiratory History: Other - sarcoidosis - Surgical History Surgical History: Yes Surgery Procedure, Year, and Place: [facility] RIGHT EAR. appy. hysterectomy. ovaries removed x2. carpal tunnel. b/l cataract. polyp removed from throat. right rotator cuff sx--[id number]. neck surgery- disc removed. - Family History Known Family History: Positive: Cardiac Disease, Hypertension - Social History Occupation: Employed Full-time Lives: With Family Alcohol Use: None Substance Use Type: None Smoking Status (MU): Never Smoked Tobacco Have You Smoked in the Last Year: No - Immunization History Vaccination Up to Date: No Review of Systems All Other Systems Reviewed And Are Negative: Yes Constitutional: Positive: Negative Skin: Positive: Negative Eyes: Positive: Negative ENT: Positive: Sinus Congestion, Sinus Pain/Tenderness Respiratory: Positive: Shortness Of Breath, Cough Cardiovascular: Positive: Negative Gastrointestinal: Positive: Negative Genitourinary: Positive: Negative Motor: Positive: Negative Neurovascular: Positive: Negative Musculoskeletal: Positive: Negative Neurological: Positive: Headache Psychological: Positive: Negative Is Patient Immunocompromised?: No Physical Exam Triage Information Reviewed: Yes Appearance: Ill-Appearing Vital Signs: Initial Vital Signs Temp 96.5 F 05/05/19 17:20 Pulse 66 05/05/19 17:20 Resp 20 05/05/19 17:20 BP 153/72 05/05/19 17:20 Pulse Ox 100 05/05/19 17:20 Vital Signs Reviewed: Yes Eye Exam: Normal ENT: Positive: Nasal congestion, Sinus tenderness Dental Exam: Normal Neck exam: Normal Respiratory: Positive: Decreased breath sounds Cardiovascular Exam: Normal Musculoskeletal Exam: Normal Neurological Exam: Normal Psychological Exam: Normal Skin Exam: Normal Respiratory Course/Dx - Differential Dx/Diagnosis Differential Diagnosis/HQI/PQRI: Bronchitis, Sinusitis Provider Diagnosis: Sinusitis, Cough Discharge - Sign-Out/Discharge Documenting (check all that apply): Patient Departure All imaging exams completed and their final reports reviewed: No Studies - Discharge Plan Condition: Stable Disposition: HOME Prescriptions: Albuterol HFA INHALER* [Ventolin HFA Inhaler*] 1 - 2 puff INH Q4H PRN #1 mdi PRN Reason: Sob/Wheezing Azithromycin TAB* [Zithromax TAB (Z-WILIAN) 250 mg #6 tabs] 2 tab PO .TODAY, THEN 1 DAILY #1 wilian Benzonatate CAP* [Tessalon 100 MG CAP*] 200 mg PO Q8H PRN #30 cap PRN Reason: Cough Patient Education Materials: Sinusitis (ED), Acute Cough (ED) Referrals: [facility] [Outside] - If Needed No Primary Care Phys,NOPCP [Primary Care Provider] - Additional Instructions: Please follow up with your PCP as needed. - Billing Disposition and Condition Condition: STABLE Disposition: Home
== END 2019-05-05 17:54 | disposition home or self-care (01) ==
LOC: UCCORT 15:50
DX: J32.9 Chronic sinusitis, unspecified (principal); R05 Cough; D86.9 Sarcoidosis, unspecified
CPT/HCPCS: 99212; G0463